=== PATIENT | male | born 1980 | race Caucasian/White ===

== ENCOUNTER → 2017-10-14 | Outpatient (CLI) | payer OTHER ==
[~2017-10-14] MED LIST: ASCO-90 PO; CHOL100011 PO; DICL1ADH15 TD; GLUC500T11 PO; LACT1CAP35 PO; MULT-658 PO; OMEG1CAP23 PO; OXYC-307 PO; VITA1CAP PO; calcium, mag, zinc PO; flexeril PO
[2017-10-14 14:37] LABS: HEMATOCRIT 50.8 % (39.2-51.8); HEMOGLOBIN 17.3 g/dL (13.7-18.0); WHITE BLOOD COUNT 4.4 x10^3/uL (3.4-10)
[2017-10-14 14:42] LABS: BLOOD UREA NITROGEN 18 mg/dL (7-18)
== END | disposition home or self-care (01) ==
LOC: STAR 13:23
PROVIDERS: ATTEND Orthopaedic Surgery Orthopaedic Surgery of the Spine
DX: Z01.818 Encounter for other preprocedural examination (principal); M48.07 Spinal stenosis, lumbosacral region; R79.1 Abnormal coagulation profile
CPT/HCPCS: 36415; 71020; 80048; 81003; 85025; 85610; 85651; 85730; 93005

== ENCOUNTER 2017-10-23 06:21 | Inpatient (IN) | payer OTHER ==
[~2017-10-23] VITALS: Ht 182.9 cm; Wt 90.0 kg
[2017-10-23] MEDS ORDERED: VANCOMYCIN PMX 1GM/200ML 200 ML IV STA (06:46)
[2017-10-23] MEDS ORDERED: MIDAZOLAM 1 MG/ML, 2ML ONE (06:48)
[2017-10-23] MEDS ORDERED: FENTANYL PF 250 MCG/5ML ONE (06:49)
[2017-10-23 06:54] VITALS: BP 127/85
[2017-10-23] MEDS ORDERED: TRANEXAMIC ACID 100 MG/ML, 10ML ONE (06:55)
[2017-10-23] MEDS ORDERED: BUPIVACAINE/PF 0.5% ONE (06:55)
[2017-10-23] MEDS ORDERED: THROMBIN 5,000 UNIT VIAL TP ONE (06:56)
[2017-10-23] MEDS ORDERED: BACITRACIN 50,000 UNIT ONE (06:56)
[2017-10-23] MEDS ORDERED: EPINEPHRINE 1 MG/ML, 1ML ONE (07:02)
[2017-10-23] MEDS ORDERED: LACTATED RINGERS 1,000 ML IV SCH (07:06)
[2017-10-23] MEDS ORDERED: LIDOCAINE 1%, 2ML SQ PRN (07:30)
[2017-10-23] MEDS ORDERED: PROPOFOL 100 ML ONE (07:42)
[2017-10-23] MEDS ORDERED: DEXAMETHASONE 4 MG/ML, 1ML ONE ×2 (08:01)
[2017-10-23] MEDS ORDERED: CEFAZOLIN 1,000 MG ONE (08:04)
[2017-10-23] MEDS ORDERED: BUPIVACAINE/PF-EPI 0.5% 1:200K INFIL ONE (08:40)
[2017-10-23] MEDS ORDERED: BACITRACIN 50,000 UNIT IM ONE (08:43)
[2017-10-23] MEDS ORDERED: PROPOFOL 10 MG/ML, 20ML ONE (09:08)
[2017-10-23] MEDS ORDERED: ONDANSETRON 2MG/ML, 2ML IVPush PRN ×2 (09:30→16:00)
[2017-10-23] MEDS ORDERED: MEPERIDINE/PF 25MG/0.5ML IVPush PRN (09:30)
[2017-10-23] MEDS ORDERED: OXYcodone 5 MG/5 ML ORAL.SOL UDC PO PRN (09:30)
[2017-10-23] MEDS ORDERED: hydrALAzine 20 MG/ML, 1ML IV PRN (09:30)
[2017-10-23] MEDS ORDERED: LABETALOL 5MG/ML, 20ML IV PRN (09:30)
[2017-10-23] MEDS ORDERED: ACETAMINOPHEN 325 MG TABLET PO PRN (09:30)
[2017-10-23] MEDS ORDERED: FENTANYL PF 100 MCG/2ML IV PRN (09:30)
[2017-10-23] MEDS ORDERED: HYDROmorphone 1 MG/ML, 1ML IV PRN (09:30)
[2017-10-23] MEDS ORDERED: DIAZEPAM 5 MG/ML, 2ML IVPush PRN (09:30)
[2017-10-23] MEDS ORDERED: PROMETHAZINE 25 MG/ML, 1ML IV PRN (09:30)
[2017-10-23] MEDS ORDERED: PROPOFOL 50 ML ONE (10:19)
[2017-10-23] MEDS ORDERED: ONDANSETRON 2MG/ML, 2ML ONE ×2 (10:47)
[2017-10-23] MEDS ORDERED: HYDROmorphone 2 MG/ML, 1ML ONE (11:05)
[2017-10-23] MEDS ORDERED: ACETAMINOPHEN 650 MG/20.3 ML UDC ONE (12:23)
[2017-10-23] MEDS ORDERED: OXYcodone 5 MG/5 ML ORAL.SOL UDC ONE (12:23)
[2017-10-23] MEDS ORDERED: ACETAMINOPHEN 325 MG TABLET ONE (12:23)
[2017-10-23 13:00] VITALS: BP 129/69
[2017-10-23] MEDS ORDERED: SODIUM CHLORIDE 0.9% 1,000ML IVBOLUS PRN (14:00)
[2017-10-23] MEDS ORDERED: DIPHENHYDRAMINE 50 MG/ML, 1ML IVPush PRN (16:00)
[2017-10-23] MEDS ORDERED: BISACODYL 10 MG SUPP PR PRN (16:00)
[2017-10-23] MEDS ORDERED: DIPHENHYDRAMINE 50 MG/ML, 1ML IM PRN ×2 (16:00)
[2017-10-23] MEDS ORDERED: LORazepam 1MG TABLET PO PRN (16:00)
[2017-10-23] MEDS ORDERED: DIAZEPAM 5 MG TABLET PO PRN (16:00)
[2017-10-23] MEDS ORDERED: KETOROLAC 30 MG/1 ML IVPush PRN (16:00)
[2017-10-23] MEDS ORDERED: ACETAMINOPHEN 500 MG TABLET PO PRN (16:00)
[2017-10-23] MEDS ORDERED: MAGNESIUM HYDROXIDE 8%, 30ML UDC PO PRN (16:00)
[2017-10-23] MEDS ORDERED: ZOLPIDEM 5MG TABLET PO PRN (16:00)
[2017-10-23] MEDS ORDERED: DEXAMETHASONE 4 MG TABLET PO PRN (16:00)
[2017-10-23] MEDS: CEFAZOLIN PMX 1GM/50ML 50 ML IV SCH (16:36)
[2017-10-23] MEDS: D5%-0.9% NACL+KCL 20MEQ 1,000 ML IV SCH (19:45)
[2017-10-23 22:00] VITALS: BP 117/75
[2017-10-24] MEDS: CEFAZOLIN PMX 1GM/50ML 50 ML IV SCH ×2 (00:36→08:30)
[2017-10-24] MEDS: OXYcodone IR 5MG TABLET PO PRN ×5 (00:36→21:30)
[2017-10-24 05:28] VITALS: BP 122/76
[2017-10-24 05:31] LABS: HEMATOCRIT 40.7 % (39.2-51.8); HEMOGLOBIN 13.7 g/dL (13.7-18.0); WHITE BLOOD COUNT 9.2 x10^3/uL (3.4-10)
[2017-10-24] MEDS: D5%-0.9% NACL+KCL 20MEQ 1,000 ML IV SCH ×2 (06:00→14:53)
[2017-10-24 08:55] VITALS: BP 150/83
[2017-10-24] MEDS: SENNA/DOCUSATE TABLET PO SCH (09:08)
[2017-10-24] MEDS: DIPHENHYDRAMINE 50 MG CAPSULE PO PRN ×2 (09:21→21:30)
[2017-10-24 14:49] VITALS: BP 107/62
[2017-10-24 20:32] VITALS: BP 126/78
[2017-10-25] MEDS: D5%-0.9% NACL+KCL 20MEQ 1,000 ML IV SCH ×2 (02:00→12:00)
[2017-10-25 02:55] VITALS: BP 108/66
[2017-10-25] MEDS: OXYcodone IR 5MG TABLET PO PRN ×3 (03:02→12:38)
[2017-10-25 04:46] LABS: HEMATOCRIT 42.9 % (39.2-51.8); HEMOGLOBIN 14.5 g/dL (13.7-18.0); WHITE BLOOD COUNT 9.3 x10^3/uL (3.4-10)
[2017-10-25] MEDS ORDERED: OXYC10TA6 PO (05:35)
[2017-10-25] MEDS ORDERED: CEPH-368 PO (05:35)
[2017-10-25] MEDS ORDERED: DIAZ5TAB PO (05:35)
[2017-10-25] MEDS: SENNA/DOCUSATE TABLET PO SCH (08:57)
[2017-10-25 09:53] VITALS: BP 115/82
[2017-10-25 11:51] VITALS: BP 132/91
== END 2017-10-25 12:45 | disposition home or self-care (01) | DRG 517 ==
LOC: ORIP 06:21 → 4NOR 12:54
PROVIDERS: ADMIT Orthopaedic Surgery Orthopaedic Surgery of the Spine; ATTEND Orthopaedic Surgery Orthopaedic Surgery of the Spine
PROC: 01NB0ZZ Release Lumbar Nerve, Open Approach (ICD-10-PCS; 2017-10-23)
PROC: 4A11X4G Monitoring of Peripheral Nervous Electrical Activity, Intraoperative, External Approach (ICD-10-PCS; 2017-10-23)
PROC: 01NR0ZZ Release Sacral Nerve, Open Approach (ICD-10-PCS; 2017-10-23)
PROC: 0SP00AZ Removal of Interbody Fusion Device from Lumbar Vertebral Joint, Open Approach (ICD-10-PCS; principal; 2017-10-23 08:00)
DX: T84.84XA Pain due to internal orthopedic prosthetic devices, implants and grafts, initial encounter (principal); M48.061 Spinal stenosis, lumbar region without neurogenic claudication; Y92.89 Other specified places as the place of occurrence of the external cause; Y83.1 Surgical operation with implant of artificial internal device as the cause of abnormal reaction of the patient, or of later complication, without mention of misadventure at the time of the procedure; M54.16 Radiculopathy, lumbar region; Z98.1 Arthrodesis status
CPT/HCPCS: 36415; 72100; 85025; J0171; J0690; J1100; J1170; J2250; J2270; J2405; J2704; J3010; J3370; J3490; C1762; C9362; J3480; J7120